=== PATIENT | female | born 1995 | race Two or more races ===

== ENCOUNTER → 2020-01-10 | Outpatient (CLI) | payer BC ==
--- NOTE | 2020-01-11 12:16 | RAD ---
Examination: PREG MORE THAN OR EQ TO 14 WKS History: Large for dates Comparison/Correlation: None Findings: OB ultrasound exam was performed. Single living intrauterine gestation with cephalic lie is present with heart rate of 145 beats per minute. Placenta is located along the anterior wall and is of grade 1. movement, cardiac activity, four-chamber heart, three-vessel cord insertion and fluid in the urinary bladder are identified. stomach, bilateral kidneys, spine, and brain are visualized. Estimated weight is 410 g +/- 61 g. Average ultrasound ultrasound age is 21 weeks 4 days. Ultrasound EDC is 05/18/2020. These are the same as clinical age and EDC by clinical age. Cephalic index of 78.3 is in normal range. Head circumference to abdominal circumference ratio 1.26 is minimally above the upper limit of normal. Biparietal diameter of 5.21 cm corresponding to 21 weeks 6 days. Head circumference is 19.5 cm corresponding to 21 weeks 5 days. Abdominal circumference of 15.5 cm corresponding to 20 weeks 5 days. Femur length of 3.69 cm corresponding 21 weeks 5 days. Head circumference to abdominal circumference ratio is 1.26. Estimated weight is 410 g. Maternal cervical length of 3.4 cm present. Impression: Single living intrauterine gestation corresponding to 21 weeks and 4 days which is the same as clinical age. No suspicious process identified. Electronically signed by: Mitch Naidu MD (01/11/2020 12:13 PM) [facility]
== END | disposition home or self-care (01) ==
LOC: US 12:41
PROVIDERS: ATTEND Family Medicine
DX: O36.62X0 Maternal care for excessive fetal growth, second trimester, not applicable or unspecified (principal); Z3A.21 21 weeks gestation of pregnancy
CPT/HCPCS: 76805

== ENCOUNTER 2020-04-29 12:12 | Observation (INO) | payer BC ==
[2020-04-29] MEDS ORDERED: IV RINGERS,LACTATED 1000ML 1,000 ML IV SCH (13:02)
[2020-04-29 13:21] LABS: BILIRUBIN,URINE NEGATIVE (NEG); CLARITY,URINE CLEAR; COLOR,URINE YELLOW; NITRITE,URINE NEGATIVE (NEG); PH,URINE 6.5 (<5.0-8.0); PROTEIN,URINE NEGATIVE (NEG-TRACE); UROBILINOGEN,URINE 0.2 mg/dL (0.2 mg/dL)
[2020-04-29 13:27] LABS: SQUAMOUS EPITHELIAL CELL,UR MOD /LPF
[2020-04-29 13:28] LABS: BACTERIA,URINE FEW /HPF (0-FEW); RBC,URINE 0 /HPF (0-2)
== END 2020-04-29 18:31 | disposition home or self-care (01) ==
LOC: 3 SO LND 12:12
PROVIDERS: ADMIT Family Medicine; ATTEND Family Medicine
DX: O26.892 Other specified pregnancy related conditions, second trimester (principal); Z3A.21 21 weeks gestation of pregnancy
CPT/HCPCS: 81001; 87086; G0378; G0379

== ENCOUNTER 2020-05-06 08:57 | Observation (INO) | payer BC ==
[2020-05-06] MEDS ORDERED: IV RINGERS,LACTATED 1000ML 1,000 ML IV SCH (09:01)
[2020-05-06] MEDS ORDERED: ACETAMINOPHEN 325 MG TABLET. PO PRN (09:15)
[2020-05-06] MEDS ORDERED: ONDANSETRON PF 4 MG/2 ML VIAL. IVP PRN (09:15)
== END 2020-05-06 10:45 | disposition home or self-care (01) ==
LOC: 3 SO LND 08:57
PROVIDERS: ADMIT Family Medicine; ATTEND Family Medicine
DX: O24.415 Gestational diabetes mellitus in pregnancy, controlled by oral hypoglycemic drugs (principal); Z3A.38 38 weeks gestation of pregnancy
CPT/HCPCS: G0378; G0379; 36415; 59025; U0003

== ENCOUNTER 2020-05-14 05:49 | Inpatient (IN) | payer BC ==
[~2020-05-14] VITALS: Ht 139.7 cm; Wt 69.4 kg
[2020-05-14] MEDS ORDERED: OXYTOCIN 30 UNIT/500 ML PREMIX 500 ML IV PRN ×3 (06:00→14:45)
[2020-05-14] MEDS ORDERED: 0.9 % SODIUM CHLORIDE 10 ML DISP.SYRIN. IV PRN ×2 (06:00→14:45)
[2020-05-14] MEDS ORDERED: MAG HYDROX/ALUMINUM HYD/SIMETH 30 ML ORAL.SUSP PO PRN ×2 (06:00→14:45)
[2020-05-14] MEDS ORDERED: ACETAMINOPHEN 500 MG TABLET PO PRN (06:00)
[2020-05-14] MEDS ORDERED: ONDANSETRON PF 4 MG/2 ML VIAL. IVP PRN (06:00)
[2020-05-14] MEDS ORDERED: TERBUTALINE 1 MG/ML VIAL. SQ PRN (06:00)
[2020-05-14] MEDS ORDERED: LIDOCAINE 1% PF 30 ML VIAL. INJ PRN (06:00)
[2020-05-14] MEDS ORDERED: BUTORPHANOL 2 MG/ML VIAL. IVP PRN (06:00)
[2020-05-14] MEDS ORDERED: IBUPROFEN 400 MG TABLET. PO PRN (06:00)
[2020-05-14] MEDS ORDERED: fentaNYL PF VIAL 100 MCG/2 ML VIAL IVP PRN (06:00)
[2020-05-14 06:31] VITALS: BP 100/64
[2020-05-14] MEDS: IV RINGERS,LACTATED 1000ML 1,000 ML IV SCH ×2 (06:31→12:02)
[2020-05-14 06:43] LABS: BILIRUBIN,URINE NEGATIVE (NEG); CLARITY,URINE CLEAR; COLOR,URINE YELLOW; NITRITE,URINE NEGATIVE (NEG); PROTEIN,URINE NEGATIVE (NEG-TRACE); UROBILINOGEN,URINE 0.2 mg/dL (0.2 mg/dL)
[2020-05-14 06:48] LABS: BASO % 1 % (0-3); EOS # 0.3 x10^3/uL (0.0-0.7); EOS % 3 % (0-3); HEMATOCRIT 31.5 % (36.0-47.0); HEMOGLOBIN 10.6 g/dL (12.0-15.5); LYMPH # 1.9 x10^3/uL (1.0-4.8); LYMPH % 21 % (24-48); MEAN CORPUSCULAR HEMOGLOBIN 28 pg (25-35); MEAN CORPUSCULAR HGB CONC 34 g/dL (31-37); MEAN CORPUSCULAR VOLUME 83 fL (79-100); MONO # 0.7 x10^3/uL (0.0-1.1); MONO % 7 % (0-9); NEUT # 6.6 x10^3/uL (1.8-7.7); NEUT % 69 % (31-73); PLATELET COUNT 250 x10^3/uL (140-400); RED BLOOD COUNT 3.79 x10^6/uL (3.50-5.40); RED CELL DISTRIBUTION WIDTH 13.9 % (11.5-14.5); WHITE BLOOD COUNT 9.5 x10^3/uL (4.0-11.0)
[2020-05-14 06:55] LABS: BACTERIA,URINE FEW /HPF (0-FEW); RBC,URINE 0 /HPF (0-2); SQUAMOUS EPITHELIAL CELL,UR FEW /LPF
[2020-05-14] MEDS ORDERED: OXYTOCIN PREMIX 30 UNIT/500 ML NS BAG. IV ONE (09:00)
[2020-05-14] MEDS ORDERED: ROPIVacaine 0.2% PF 10 ML VIAL. ONE ×2 (10:58→11:00)
[2020-05-14] MEDS ORDERED: LIDOCAINE 1% PF 2 ML VIAL. ONE ×2 (10:59→11:00)
[2020-05-14] MEDS ORDERED: L&D EPIDURAL 50 ML SYRINGE. ONE (11:00)
[2020-05-14] MEDS ORDERED: L&D EPIDURAL SYRINGE 50 ML ONE (11:35)
[2020-05-14] MEDS ORDERED: LIDOCAINE 2% PF 5 ML VIAL. ONE (12:55)
--- NOTE | 2020-05-14 14:31 | PDOC1 ---
OB - History Hx of Present Care: Good Care Ultrasounds: Normal mid trimester US Obstetrical Complications: Gestational Diabetes Medical Complications: None Past Family/Social History * Past Medical, Surgical, Family and Obstetric Histories reviewed from chart. OB - Chief Complaint & HPI Date of Admission: Date of Admission: May 14, 2020 at 05:49 Chief Complaint/History : 2 Para: 1 EDC: May 18, 2020 Reason for admission: induction of labor Indication for induction: other (gestational DM2) Admission Nurse Assessment Rev: Yes OB - Admission Exam Physical Exam Vitals: VS - Last 72 Hours, by Label Date Time Temp Pulse Resp B/P (MAP) Pulse Ox O2 Delivery O2 Flow Rate FiO2 05/14/20 06:31 98.6 82 20 100/64 (76) 99 Room Air 98.6 HEENT: Normal, Nasal Mucosa Normal, Oropharynx Normal, Moist Membranes, Fontanelles Normal Lungs: Clear, Equal Abdomen: Gravid Extremities: Normal Pulses, No tenderness or swelling Reflexes: Normal Cervical Dilatation: 2cm Effacement: 75% Station: -3 Membranes: Ruptured Amniotic Fluid: Clear Heart Rate: Normal Accelerations: Accelerations Present Decelerations: No decelerations Short Term Variability: Present [employer] Variability: Moderate Contractions on Admission: < 5 Minutes Apart Intensity: Moderate PRECIOUS REHMAN MD May 14, 2020 14:31
[2020-05-14] MEDS ORDERED: PHENYLEPH/MINERAL OIL/PETROLAT RECTAL OINTMENT TUBE. RC PRN (14:45)
[2020-05-14] MEDS ORDERED: diphenhydrAMINE HCL 25 MG CAPSULE PO PRN (14:45)
[2020-05-14] MEDS ORDERED: SIMETHICONE 80 MG TAB.CHEW PO PRN (14:45)
[2020-05-14] MEDS ORDERED: BENZOCAINE 20% TOPICAL AEROSOL SPRAY 57GM CAN. TP PRN (14:45)
[2020-05-14] MEDS ORDERED: ZOLPIDEM 5 MG TABLET. PO PRN (14:45)
[2020-05-14] MEDS ORDERED: MAGNESIUM HYDROXIDE 2,400 MG/30 ML ORAL.SUSP. PO PRN (14:45)
[2020-05-14] MEDS ORDERED: TDaP (Adacel) per PROTOCOL. MC PRN (14:45)
[2020-05-14] MEDS ORDERED: ACETAMINOPHEN 325 MG TABLET. PO PRN (14:45)
[2020-05-14] MEDS ORDERED: HYDROcodone/APAP 5/325MG 1 TAB TABLET PO PRN (14:45)
[2020-05-14] MEDS ORDERED: MMR per PROTOCOL. MC PRN (14:45)
[2020-05-14] MEDS ORDERED: HYDROCORTISONE 1% TOPICAL OINTMENT 30GM TUBE. TP PRN (14:45)
--- NOTE | 2020-05-14 14:49 | LDN ---
DATE OF DELIVERY: REASON FOR ADMISSION: Induction of labor. CLINICAL COURSE: This patient is a , LC1 [place] female with gestational diabetes requiring medication with stable blood sugars throughout her course, admitted for term induction with EDC of 05/18/2020. She underwent artificial rupture of membranes and Pitocin augmentation. She had clear fluid and proceeded through labor, requiring epidural anesthesia at 4-5 cm achieving complete dilatation, delivering a viable female infant. Head was delivered and suctioned. Nuchal cord was reduced x 1. Body was delivered and 30 seconds of placental resuscitation was accomplished. Infant was suctioned and has spontaneous cry and no gross abnormalities noted. Second-degree midline laceration was noted on delivery. Cord was clamped and transected, and infant was handed off. Placenta was delivered intact with 3-vessel cord. There was approximately 300 mL blood loss. Second-degree laceration was sutured with 3-0 chromic in a running locking fashion. There was good hemostasis. Lidocaine was used for local repair. Mother and baby to recovery in stable condition. PRECIOUS REHMAN MD DR: RODRIGO/sinan JOB#: [id number] / [id number]
[2020-05-14 17:00] VITALS: BP 114/62
[2020-05-14 20:00] VITALS: BP 107/67
[2020-05-14] MEDS: IBUPROFEN 400 MG TABLET. PO SCH (23:06)
[2020-05-15] VITALS: BP 91/51
[2020-05-15 05:06] LABS: BASO % 0 % (0-3); EOS # 0.2 x10^3/uL (0.0-0.7); EOS % 2 % (0-3); HEMATOCRIT 25.6 % (36.0-47.0); HEMOGLOBIN 8.5 g/dL (12.0-15.5); LYMPH # 2.1 x10^3/uL (1.0-4.8); LYMPH % 18 % (24-48); MEAN CORPUSCULAR HEMOGLOBIN 28 pg (25-35); MEAN CORPUSCULAR HGB CONC 33 g/dL (31-37); MEAN CORPUSCULAR VOLUME 83 fL (79-100); MONO % 8 % (0-9); NEUT # 8.1 x10^3/uL (1.8-7.7); NEUT % 71 % (31-73); PLATELET COUNT 190 x10^3/uL (140-400); RED BLOOD COUNT 3.09 x10^6/uL (3.50-5.40); RED CELL DISTRIBUTION WIDTH 14.1 % (11.5-14.5); WHITE BLOOD COUNT 11.5 x10^3/uL (4.0-11.0)
[2020-05-15] MEDS: HYDROcodone/APAP 5/325MG 1 TAB TABLET PO PRN ×2 (05:46→22:12)
[2020-05-15] MEDS: FERROUS SULFATE 325 MG TABLET. PO SCH ×2 (07:56→17:11)
[2020-05-15] MEDS: PRENATAL MULTIVITAMIN TABLET. PO SCH (07:56)
[2020-05-15] MEDS: IBUPROFEN 400 MG TABLET. PO SCH ×2 (07:57→17:19)
[2020-05-15 13:00] VITALS: BP 94/60
[2020-05-15 17:10] VITALS: BP 106/64
[2020-05-15 21:24] VITALS: BP 110/64
[2020-05-16] MEDS: IBUPROFEN 400 MG TABLET. PO SCH ×2 (04:54→06:00)
[2020-05-16 04:58] VITALS: BP 111/64
[2020-05-16] MEDS: FERROUS SULFATE 325 MG TABLET. PO SCH (08:42)
[2020-05-16] MEDS: HYDROcodone/APAP 5/325MG 1 TAB TABLET PO PRN (08:42)
[2020-05-16] MEDS: PRENATAL MULTIVITAMIN TABLET. PO SCH (08:53)
[2020-05-16] MEDS ORDERED: PREN1TAB58 PO (09:17)
[2020-05-16] MEDS ORDERED: HYDR-2761 PO (09:17)
[2020-05-16] MEDS ORDERED: FERR325T72 PO (09:17)
[2020-05-16] MEDS ORDERED: IBUP-1060 PO (09:17)
[2020-05-16 09:35] VITALS: BP 98/52
--- NOTE | 2020-05-16 13:50 | PDOC ---
PROGRESS NOTES Subjective Subjective Progress note for 05/15/2020 patient doing well day 1. Decreased bleeding. Improved pain ambulating and tolerating diet. Objective Objective Vital Signs Date Time Temp Pulse Resp B/P (MAP) Pulse Ox O2 Delivery O2 Flow Rate FiO2 05/16/20 09:35 97.7 18 98/52 (67) 98 Room Air 97.7 05/16/20 04:58 62 Physical Exam Abdomen: Normal bowel sounds, Other (Uterus firm and below umbilicus) Heart: Regular rate Extremities: No edema General: Alert Lungs: Clear to auscultation MUSCULOSKELETAL: Other (Negative Homans sign) Assessment Assessment day 1 Gestational diabetes resolved Plan Plan of Care Routine care Start iron for decreased hemoglobin. Comment Review of Relevant I have reviewed the following items kalina (where applicable) has been applied. Labs Laboratory Tests Test 05/15/20 04:45 White Blood Count 11.5 x10^3/uL (4.0-11.0) Red Blood Count 3.09 x10^6/uL (3.50-5.40) Hemoglobin 8.5 g/dL (12.0-15.5) Hematocrit 25.6 % (36.0-47.0) Mean Corpuscular Volume 83 fL (79-100) Mean Corpuscular Hemoglobin 28 pg (25-35) Mean Corpuscular Hemoglobin Concent 33 g/dL (31-37) Red Cell Distribution Width 14.1 % (11.5-14.5) Platelet Count 190 x10^3/uL (140-400) Neutrophils (%) (Auto) 71 % (31-73) Lymphocytes (%) (Auto) 18 % (24-48) Monocytes (%) (Auto) 8 % (0-9) Eosinophils (%) (Auto) 2 % (0-3) Basophils (%) (Auto) 0 % (0-3) Neutrophils # (Auto) 8.1 x10^3/uL (1.8-7.7) Lymphocytes # (Auto) 2.1 x10^3/uL (1.0-4.8) Monocytes # (Auto) 1.0 x10^3/uL (0.0-1.1) Eosinophils # (Auto) 0.2 x10^3/uL (0.0-0.7) Basophils # (Auto) 0.0 x10^3/uL (0.0-0.2) Microbiology 05/14/20 Urine Culture - Final, Complete Medications Current Medications Sodium Chloride (Normal Saline Flush) 3 ml QSHIFT PRN IV AFTER MEDS AND BLOOD DRAWS; Start 05/14/20 at 06:00 Ringer's Solution 1,000 ml @ 125 mls/hr Q8H IV Last administered on 05/14/20at 12:02; Start 05/14/20 at 05:50 Butorphanol Tartrate (Stadol) 2 mg PRN Q1HR PRN IVP Severe labor pain; Start 05/14/20 at 06:00 Fentanyl Citrate (Fentanyl 2ml Vial) 100 mcg PRN Q30MIN PRN IVP Severe pain; Start 05/14/20 at 06:00 Acetaminophen (Tylenol) 1,000 mg PRN Q6HRS PRN PO MILD PAIN / TEMP > 100.3'F; Start 05/14/20 at 06:00; Stop 05/14/20 at 14:42; Status DC Ondansetron HCl (Zofran) 4 mg PRN Q4HRS PRN IVP NAUSEA/VOMITING 1ST CHOICE; Start 05/14/20 at 06:00 Al Hydroxide/Mg Hydroxide (Mylanta Plus Xs) 30 ml PRN Q4HRS PRN PO HEARTBURN / GAS Last administered on 05/16/20at 00:46; Start 05/14/20 at 06:00 Terbutaline Sulfate (Brethine) 0.25 mg 1X PRN PRN SQ SEE COMMENTS; Start 05/14/20 at 06:00; Stop 05/15/20 at 05:59; Status DC Lidocaine HCl (Xylocaine 1% Pf 30ml Vial) 30 ml 1X PRN PRN INJ SEE COMMENTS Last administered on 05/14/20at 15:58; Start 05/14/20 at 06:00; Stop 05/16/20 at 05:59; Status DC Oxytocin/Sodium Chloride 500 ml @ 0 mls/hr CONT PRN IV SEE I/O RECORD; Start 05/14/20 at 06:00 Oxytocin/Sodium Chloride 500 ml @ 0 mls/hr CONT PRN PRN IV Post delivery bleeding; Start 05/14/20 at 06:00 Ibuprofen (Motrin) 800 mg PRN Q6HRS PRN PO MODERATE PAIN 4-6; Start 05/14/20 at 06:00; Stop 05/14/20 at 14:52; Status DC Ropivacaine (Naropin 0.2%) 10 ml STK-MED ONCE .ROUTE ; Start 05/14/20 at 10:58; Stop 05/14/20 at 10:58; Status DC Lidocaine HCl (Xylocaine-Mpf 1% 2ml Vial) 2 ml STK-MED ONCE .ROUTE ; Start 05/14/20 at 10:59; Stop 05/14/20 at 10:59; Status DC Fentanyl Citrate 50 ml @ As Directed STK-MED ONCE .ROUTE ; Start 05/14/20 at 11:35; Stop 05/14/20 at 11:35; Status DC Lidocaine HCl (Lidocaine Pf 2% Vial) 5 ml STK-MED ONCE .ROUTE ; Start 05/14/20 at 12:55; Stop 05/14/20 at 12:55; Status DC Sodium Chloride (Normal Saline Flush) 10 ml QSHIFT PRN IV AFTER MEDS AND BLOOD DRAWS; Start 05/14/20 at 14:45 Oxytocin/Sodium Chloride 500 ml @ 62.5 mls/hr CONT PRN IV SEE I/O RECORD; Start 05/14/20 at 14:45; Stop 05/14/20 at 22:44; Status DC Acetaminophen (Tylenol) 650 mg PRN Q6HRS PRN PO TEMP > 100.3'F Last administered on 05/14/20at 15:57; Start 05/14/20 at 14:45 Ibuprofen (Motrin) 800 mg Q8HRS PO Last administered on 05/16/20at 04:54; Start 05/14/20 at 22:00 Magnesium Hydroxide (Milk Of Magnesia) 2,400 mg PRN DAILY PRN PO CONSTIPATION Last administered on 05/16/20at 08:44; Start 05/14/20 at 14:45 Al Hydroxide/Mg Hydroxide (Mylanta Plus Xs) 30 ml PRN Q4HRS PRN PO HEARTBURN / GAS; Start 05/14/20 at 14:45 Simethicone (Gas-X) 80 mg PRN AFTMEALHC PRN PO GAS / BLOATING; Start 05/14/20 at 14:45 Diphenhydramine HCl (Benadryl) 25 mg PRN Q6HRS PRN PO ITCHING; Start 05/14/20 a t 14:45 Benzocaine (Americaine) 1 spray PRN QID PRN TP TOPICAL PAIN Last administered on 05/14/20at 15:57; Start 05/14/20 at 14:45 Phenyleph/Shark Oil/Min Oil/Petrol (Preparation H) 1 arias PRN QID PRN RC RECTAL PAIN; Start 05/14/20 at 14:45 Hydrocortisone (Cortaid) 1 arias PRN QID PRN TP PERINEAL PAIN; Start 05/14/20 at 14:45 Ferrous Sulfate (Feosol) 325 mg BIDWMEALS PO Last administered on 05/16/20at 08:42; Start 05/15/20 at 08:00 Zolpidem Tartrate (Ambien) 5 mg PRN QHS PRN PO INSOMNIA, MAY REPEAT X1; Start 05/14/20 at 14:45 Info (Do NOT chart on this placeholder) 1 ea 1X PRN PRN MC SEE COMMENTS; Start 05/14/20 at 14:45 Info (Do NOT chart on this placeholder) 1 ea 1X PRN PRN MC SEE COMMENTS; Start 05/14/20 at 14:45 Multivit/ Folic Acid/Iron (Multivitamin ) 1 tab DAILY PO Last administered on 05/16/20at 08:53; Start 05/15/20 at 09:00 Acetaminophen/ Hydrocodone Bitart (Lortab 5/325) 1 tab PRN Q4HRS PRN PO MILD PAIN 1-3 Last administered on 05/16/20at 08:42; Start 05/14/20 at 14:45 Acetaminophen/ Hydrocodone Bitart (Lortab 5/325) 2 tab PRN Q4HRS PRN PO MODERATE PAIN, SEVERE PAIN; Start 05/14/20 at 14:45 Oxytocin/Sodium Chloride (Oxytocin Premix Infusion) 30 unit STK-MED ONCE IV ; Start 05/14/20 at 09:00; Stop 05/15/20 at 08:51; Status DC Fentanyl Citrate ([id number] 3 Mcg-0.1%) 50 ml STK-MED ONCE .ROUTE ; Start 05/14/20 at 11:00; Stop 05/15/20 at 08:51; Status DC Ropivacaine (Naropin 0.2%) 10 ml STK-MED ONCE .ROUTE ; Start 05/14/20 at 11:00; Stop 05/15/20 at 08:51; Status DC Lidocaine HCl (Xylocaine-Mpf 1% 2ml Vial) 2 ml STK-MED ONCE .ROUTE ; Start 05/14/20 at 11:00; Stop 05/15/20 at 08:51; Status DC Active Scripts Active Ibuprofen 800 Mg Tablet 800 Mg PO TID 30 Days Vitamins ( Vits W-Ca,Fe,Fa(<1MG)) 1 Each Tablet 1 Tab PO DAILY 30 Days Hydrocodone-Apap 5-325 (Hydrocodone Bit/Acetaminophen) 1 Tab Tablet 1 Tab PO PRN Q4HRS PRN 30 Days Feosol (Ferrous Sulfate) 325 Mg Tablet 325 Mg PO BIDWMEALS 60 Days Vitals/I & O Vital Sign - Last 24 Hours 05/15/20 05/15/20 05/15/20 05/16/20 17:10 21:24 22:12 04:58 Temp 97.8 98.2 98.0 97.8 98.2 98.0 Pulse 89 67 62 Resp 18 18 18 16 B/P (MAP) 106/64 (78) 110/64 (79) 111/64 (80) Pulse Ox 96 97 99 O2 Delivery Room Air Room Air Room Air 05/16/20 09:35 Temp 97.7 97.7 Resp 18 B/P (MAP) 98/52 (67) Pulse Ox 98 O2 Delivery Room Air Justicifation of Admission Dx: Justifications for Admission: Justification of Admission Dx: Yes Comments: Labor and delivery term vaginal PRECIOUS REHMAN MD May 16, 2020 13:50
--- NOTE | 2020-05-16 13:53 | PDOC3 ---
OB DISCHARGE SUMMARY DATE OF ADMISSION: 05/14/2020 DATE OF DISCHARGE: 05/16/2020 REASON FOR ADMISSION: Induction of labor INTRAPARTUM PROCEDURES: Spontanous Vag Deliv PROCEDURES: HCT, HGB DISCHARGE DIAGNOSIS: Term Delivered DISCHARGE INFORMATION: Activity (No sexual activity for 6-week), Others (Follow-up 6 weeks for eval. see Mrad for medication list) HOSPITAL COURSE Routine care. Gestational diabetes resolved. Anemia started on iron - blood loss anemia CONDITION AT DISCHARGE day 2 doing well. PRECIOUS REHMAN MD May 16, 2020 13:53
[2020-05-16 14:14] VITALS: BP 114/66
== END 2020-05-16 14:17 | disposition home or self-care (01) | DRG 807 ==
LOC: 3 SO LND 05:49 → 3 NORTH 16:40
PROVIDERS: ADMIT Family Medicine; ATTEND Family Medicine
PROC: 10E0XZZ Delivery of Products of Conception, External Approach (ICD-10-PCS; principal; 2020-05-16)
PROC: 0KQM0ZZ Repair Perineum Muscle, Open Approach (ICD-10-PCS; 2020-05-16)
PROC: 10907ZC Drainage of Amniotic Fluid, Therapeutic from Products of Conception, Via Natural or Artificial Opening (ICD-10-PCS; 2020-05-16)
PROC: 3E0R3BZ Introduction of Anesthetic Agent into Spinal Canal, Percutaneous Approach (ICD-10-PCS; 2020-05-16)
PROC: 00HU33Z Insertion of Infusion Device into Spinal Canal, Percutaneous Approach (ICD-10-PCS; 2020-05-16)
DX: O24.429 Gestational diabetes mellitus in childbirth, unspecified control (principal); Z37.0 Single live birth; O69.81X0 Labor and delivery complicated by cord around neck, without compression, not applicable or unspecified; O70.1 Second degree perineal laceration during delivery; O99.02 Anemia complicating childbirth; D50.0 Iron deficiency anemia secondary to blood loss (chronic); Z3A.00 Weeks of gestation of pregnancy not specified
CPT/HCPCS: 36415; 81001; 82947; 85025; 86592; 86850; 86900; 86901; 87086; J2590; J2795; J3010; J3490; J7120; G0378